=== PATIENT | male | born 1965 | race African-American/Black ===

== ENCOUNTER 2016-07-22 10:22 | Emergency (ER) | payer MEDICAID ==
[~2016-07-22] VITALS: Ht 198.1 cm; Wt 90.0 kg
[~2016-07-22 10:22] MED LIST: BACI500O9 TOP; CANEMIS18; CIPR500T4 PO; CLIN1CAP6 PO; EPIP0.3I IM; GABA300C3 PO; HYDR-3533 PO; HYDR-3535 PO; LIDO5T TOP; NORV5TAB PO; ROBA500T PO; WARF-21 PO; WARF5TAB PO; WARF7.5T4 PO; [UNRECOGNIZED DRUG - CODE]
[2016-07-22 10:24] VITALS: BP 175/96; PULSE 63; RESP 12; TEMP 98.2; O2SAT 99
[2016-07-22] MEDS ORDERED: GABA300C5 PO (10:30)
[2016-07-22] MEDS ORDERED: WARF-22 PO ×2 (10:30→11:36)
[2016-07-22] MEDS ORDERED: AMLO5 PO (10:30)
[2016-07-22] MEDS ORDERED: NEUR300C PO (11:05)
[2016-07-22] MEDS ORDERED: WARF-21 PO (11:05)
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
[2016-07-22 11:19] LABS: INTERNATIONAL NORMALIZED RATIO 4.3 RATIO; PROTHROMBIN TIME - PATIENT 50.6 SEC (9.8-11.6)
== END 2016-07-22 11:38 | disposition home or self-care (01) ==
LOC: NETRI 10:22
DX: G62.9 Polyneuropathy, unspecified (principal); M79.601 Pain in right arm; I10 Essential (primary) hypertension; Z79.01 Long term (current) use of anticoagulants; Z86.73 Personal history of transient ischemic attack (TIA), and cerebral infarction without residual deficits
CPT/HCPCS: 85610; 99282